=== PATIENT | female | born 1995 | race Caucasian/White ===

== ENCOUNTER 2025-01-07 23:31 | Day surgery (SDC) | payer OTHER ==
[2025-01-08 00:20] LABS: Fetal Membranes Rupture No Membranes Rupture (No Rupture)
[2025-01-08 00:26] VITALS: BMI 46.2
== END 2025-01-08 02:21 | disposition home or self-care (01) ==
LOC: CSHLD/OP 23:31
PROVIDERS: ATTEND Obstetrics & Gynecology
DX: Z03.71 Encounter for suspected problem with amniotic cavity and membrane ruled out (principal); O98.813 Other maternal infectious and parasitic diseases complicating pregnancy, third trimester; B37.9 Candidiasis, unspecified; Z3A.38 38 weeks gestation of pregnancy; Z91.048 Other nonmedicinal substance allergy status
CPT/HCPCS: 84112; 87480; 87510; 87660; 99285

== ENCOUNTER 2025-01-15 18:00 | Inpatient (IN) | payer OTHER ==
[~2025-01-15 18:00] MED LIST: Bupivacaine 0.25% HCL 30 ML VIAL ONE
[2025-01-15 21:23] VITALS: BMI 46.5
[2025-01-15] MEDS ORDERED: Lidocaine 1% (PF) 30 ML VIAL SC PRN (21:25)
[2025-01-15] MEDS ORDERED: Ondansetron PF 4 MG/2 ML Vial IVP PRN (21:25)
[2025-01-15] MEDS ORDERED: Oxytocin 30 units/NS 500 ML 500 ML IV SCH (21:25)
[2025-01-15] MEDS ORDERED: Tranexamic Acid 1,000 MG/10 ML VIAL IVP PRN (21:25)
[2025-01-15] MEDS ORDERED: Acetaminophen 500 MG TAB PO PRN (21:25)
[2025-01-15] MEDS ORDERED: Carboprost 250 MCG/ML AMP IM PRN (21:25)
[2025-01-15] MEDS ORDERED: HYDROcodone/Acetaminophen 5/325 mg Tablet PO PRN ×2 (21:25)
[2025-01-15] MEDS ORDERED: Methylergonovine 0.2 MG/ML VIAL IM PRN (21:25)
[2025-01-15] MEDS ORDERED: Ibuprofen 800 MG TAB PO PRN (21:25)
[2025-01-15] MEDS ORDERED: Diphenoxylate HCl/Atropine Tablet PO PRN ×2 (21:25)
[2025-01-15 21:43] LABS: Hematocrit 32.7 % (34.9-44.5); Hemoglobin 11.1 g/dL (12.0-15.5); Mean Corpuscular Hemoglobin 29.1 pg (27.0-33.0); Mean Corpuscular Volume 85.6 fL (81.6-98.3); Platelet Count 310 10x3/uL (150-450); Red Blood Cell (RBC) Count 3.82 10x6/uL (3.90-5.03); White Blood Cell (WBC) Count 11.30 10x3/uL (3.5-10.5)
[2025-01-15] MEDS: Penicillin G Potassium 5 MILL.UNITS VIAL ONE (22:00)
[2025-01-15 22:17] LABS: Hep B Surf Ag - L&D Non-Reactive S/CO (NonReactive)
[2025-01-15 22:18] LABS: Syphilis Antibody Index 0.08 S/CO (<1.00 Non-Reactive)
[2025-01-15] MEDS ORDERED: Penicillin G Potassium 5 MILL.UNITS in Sodium Chloride 0.9% 100 ML IVPB SCH (23:00)
[2025-01-16] MEDS: Penicillin G 2.5 MILL.units 2.5 MILL.UNITS in Premix 1 BAG IVPB SCH (01:51)
[2025-01-16] MEDS: fentaNYL/Ropivacaine Epidural 100 ML ONE (02:55)
[2025-01-16] MEDS ORDERED: Ondansetron PF 4 MG/2 ML Vial IVP PRN (03:05)
[2025-01-16] MEDS ORDERED: diphenhydrAMINE 50 MG/ML VIAL IVP PRN (03:05)
[2025-01-16] MEDS ORDERED: Acetaminophen 325 MG TAB PO PRN (03:05)
[2025-01-16] MEDS: hydrALAZINE 20 MG/ML VIAL SLOW IVP PRN (03:10)
[2025-01-16] MEDS ORDERED: Communication Order-Pharmacy FS SCH (03:15)
[2025-01-16] MEDS ORDERED: fentaNYL 2 mcg/Ropivacaine 0.2% Epidural 100 ML CADD EPIDURAL SCH (03:15)
[2025-01-16] MEDS: Oxytocin 30 units/NS 500 ML 500 ML IV SCH (07:41)
[2025-01-16] MEDS ORDERED: Milk Of Magnesia 30 ML UDCUP PO PRN (13:37)
[2025-01-16] MEDS ORDERED: hydrALAZINE 20 MG/ML VIAL SLOW IVP PRN (13:37)
[2025-01-16] MEDS ORDERED: Bisacodyl 10 MG SUPP PR PRN (13:37)
[2025-01-16] MEDS: Boostrix 0.5 ML (Tdap) VIAL (>/=7 yrs of age) IM ONE (17:36)
[2025-01-16] MEDS: Ferrous Sulfate 325 MG TAB PO SCH (17:37)
[2025-01-16] MEDS: Ibuprofen 800 MG TAB PO SCH (17:37)
[2025-01-16] MEDS: Benzocaine-Menthol 82.5 ML CAN TOP PRN (23:09)
[2025-01-17 11:02] VITALS: BP 135/77; TEMP 97.6
== END 2025-01-17 15:00 | disposition home or self-care (01) | DRG 807 ==
LOC: CSHLD 19:58 → CSHPP 01-16 13:25
PROVIDERS: ADMIT Obstetrics & Gynecology; ATTEND Obstetrics & Gynecology
PROC: 10E0XZZ Delivery of Products of Conception, External Approach (ICD-10-PCS; principal; 2025-01-16)
PROC: 4A1HXCZ Monitoring of Products of Conception, Cardiac Rate, External Approach (ICD-10-PCS; 2025-01-16)
PROC: 3E03329 Introduction of Other Anti-infective into Peripheral Vein, Percutaneous Approach (ICD-10-PCS; 2025-01-16)
DX: O99.214 Obesity complicating childbirth (principal); Z37.0 Single live birth; O70.0 First degree perineal laceration during delivery; Z91.040 Latex allergy status; Z79.899 Other long term (current) drug therapy; Z3A.39 39 weeks gestation of pregnancy
CPT/HCPCS: 36415; 51702; 85027; 86780; 86850; 86900; 86901; 87340; J0360; J0665; J2540; J2590; J7120